=== PATIENT | female | born 1995 | race Caucasian/White ===

== ENCOUNTER 2018-06-09 14:35 | Emergency (ER) | payer MEDICAID ==
[2018-06-09] MEDS ORDERED: NS 1,000 ML IV ONE (14:53)
--- NOTE | 2018-06-09 14:57 | EDPHY ---
HPI/HX/ROS/PE/MDM Narrative: CHIEF COMPLAINT: Fall climbing, FTA HPI: This patient is a healthy 23-year-old female arriving via private vehicle, brought from the waiting room as a full trauma activation due to a reported 40ft fall when climbing this morning around 10:15am. She was climbing the [employer] this morning and states she slid and fell about 40ft. She states she landed on a ledge which prevented her from falling farther. She did strike her head but denies any loss of consciousness. She had a prolonged extrication by [employer] [facility] from the [facility]. After rescue, she declined ambulance transport. She presents to the emergency department by private vehicle primarily complaining of right leg pain, and she is concerned that her "ankle doesn't look awesome". The ankle has been splinted by [facility] personnel. She sustained a laceration to her right knee as well. She denies any other recent trauma or illness. She is well appearing, alert and oriented. REVIEW OF SYSTEMS: A comprehensive 10 system review of systems is otherwise negative aside from elements mentioned in the history of present illness and medical decision making. PMH: Denies SOCIAL HISTORY: Mother at bedside. Recent [employer] graduate. 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 PHYSICAL EXAM: General:Patient is alert, in no acute distress. Head: Normocephalic. Abrasion to left cheondoism, otherwise atraumatic. ENT:Eyes are normal to inspection. ENT inspection normal. No hemotympanum. Neck: Normal inspection. Full range of motion. Respiratory:No respiratory distress. Breath sounds normal bilaterally. Cardiovascular: Regular rate and rhythm. Strong peripheral pulses. Normal cap refill. Abdomen:The abdomen is nontender to palpation. There are no peritoneal signs. There are normal bowel sounds. Back: Abrasion to right buttock. Normal to inspection. No tenderness to palpation, no step-offs. Skin: Normal color. No rash. Warm and dry. Extremities: Obvious deformity/dislocation to right ankle, intact Abrasion to right lateral malleolus. 4cm linear laceration over right song proximal to the knee. Full range of motion. Neuro: Oriented x3. Normal motor function. Normal sensory function. ED Course: 14:46 Met patient on arrival. 23-year-old female presents with obvious deformity to the right ankle as well as various abrasions and a laceration after part sliding, part falling about 40 feet down the first flatiron while climbing this morning around 10:15am. Dr. Enriquez, general surgeon, at bedside. Patient is alert and oriented, arrived by private vehicle. She is well- appearing. Plan to administer 4mg IV morphine, 1L IV NS for symptom relief. 15:00 Dr. Burr and I agree to downgrade the trauma alert. Downgraded at this time. Reviewed x-rays. Evidence of mid-foot fracture. The patient seems to have sustained an isolated right ankle injury. No other injuries identified. Plan to consult with orthopedics. 15:[address] Ashley, medical specialist. He will review the patient' s x-ray. 15:[address] Ashley. Recommends reduction of patient's subtalar dislocation here in the emergency department followed by three-way splint. Patients mother now at bedside. 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 15:[address] Ashley. He recommends we proceed with reduction at this time. 16:05 Attempted reduction with 100mcg IV Fentanyl. Unable to reduce. 16:[address] Ashley. He requests CT of the right foot. When this is obtained he will come to evaluate for possible reduction with conscious sedation. Laceration Repair: Verbal consent was obtained from the patient. The linear 4cm laceration on the right song was anesthetized using bupivacaine with epinephrine. The wound was cleaned with standard ED protocol, draped and explored to its base with a gloved finger. The wound was repaired in single layer technique with four 4-0 Prolene sutures. The wound repair was simple. The procedure was performed by myself, Dr. Arevalo. Dr. Ashley has reviewed CT and assessed the patient. Plan for splint placement under standard ED protocol and followup outpatient with orthopedics. Reassessed patient. Discussed imaging results and the plan for orthopedic followup. Return precautions discussed. She and her mother are comfortable with this plan. - Data Points Imaging Results: Imaging Impressions Ankle X-Ray 06/09/18 14:52 Impression: 1. Intact ankle mortise. 2. Derangement mid foot with several fractures and disrupted joint spaces. Recommend CT of the foot and ankle to optimally characterize. Tibia/Fibula X-Ray 06/09/18 14:52 Impression: Intact shaft of tibia and fibula. Extremity CT 06/09/18 16:13 Impression: 1. Multiple comminuted displaced fractures of the right foot tarsal bones especially the cuboid and navicular bones, third toe proximal phalanx base, with smaller fracture fragments involving the talus, cuneiforms, and base of the fifth metacarpal as described above. 2. Recommend dedicated x-rays of the right foot or toes. Findings and recommendations discussed with Emergency Department physician, Ruddy Arevalo MD, at 1720 hour, 06/09/2018. Final report concurs with initial preliminary interpretation. Imaging: Discussed imaging studies w/ allergy physician Radiologist, I viewed and interpreted images myself Laboratory Results: Laboratory Results 06/09/18 15:17 06/09/18 15:17 06/09/18 06/09/18 06/09/18 15:17 15:17 15:17 WBC 10.34 10^3/uL H 10^3/uL (3.80-9.50) RBC 5.05 10^6/uL 10^6/uL (4.18-5.33) Hgb 15.0 g/dL g/dL (12.6-16.3) Hct 44.6 % % (38.0-47.0) MCV 88.3 fL fL (81.5-99.8) MCH 29.7 pg pg (27.9-34.1) MCHC 33.6 g/dL g/dL (32.4-36.7) RDW 12.8 % % (11.5-15.2) Plt Count 231 10^3/uL 10^3/uL (150-400) MPV 9.3 fL fL (8.7-11.7) Neut % (Auto) 83.4 % H % (39.3-74.2) Lymph % (Auto) 10.7 % L % (15.0-45.0) [place] % (Auto) 5.2 % % (4.5-13.0) Eos % (Auto) 0.0 % L % (0.6-7.6) Baso % (Auto) 0.2 % L % (0.3-1.7) Nucleat RBC Rel Count 0.0 % % (0.0-0.2) Absolute Neuts (auto) 8.62 10^3/uL H 10^3/uL (1.70-6.50) Absolute Lymphs (auto) 1.11 10^3/uL 10^3/uL (1.00-3.00) Absolute Monos (auto) 0.54 10^3/uL 10^3/uL (0.30-0.80) Absolute Eos (auto) 0.00 10^3/uL L 10^3/uL (0.03-0.40) Absolute Basos (auto) 0.02 10^3/uL 10^3/uL (0.02-0.10) Absolute Nucleated RBC 0.00 10^3/uL 10^3/uL (0-0.01) Immature Gran % 0.5 % % (0.0-1.1) Immature Gran # 0.05 10^3/uL 10^3/uL (0.00-0.10) Sodium 136 mEq/L mEq/L (135-145) Potassium 4.0 mEq/L mEq/L (3.5-5.2) Chloride 103 mEq/L mEq/L (97-110) Carbon Dioxide 22 mEq/l mEq/l (22-31) Anion Gap 11 mEq/L mEq/L (6-14) BUN 19 mg/dL mg/dL (7-23) Creatinine 0.6 mg/dL mg/dL (0.6-1.0) Estimated GFR > 60 Glucose 96 mg/dL mg/dL (70-100) Calcium 9.3 mg/dL mg/dL (8.5-10.4) Beta HCG, Qual NEGATIVE Medications Given: Discontinued Medications Diphtheria/Tetanus/Acell Pertussis (Boostrix) 0.5 ml IM .ONCE ONE Stop: 06/09/18 15:48 Last Admin: 06/09/18 16:14 Dose: Not Given Fentanyl (Sublimaze) 50 mcg IVP EDNOW ONE Stop: 06/09/18 15:37 Last Admin: 06/09/18 15:38 Dose: 50 mcg Fentanyl (Sublimaze) 50 mcg IVP EDNOW ONE Stop: 06/09/18 15:59 Last Admin: 06/09/18 15:58 Dose: 50 mcg Sodium Chloride (Ns) 1,000 mls @ 0 mls/hr IV EDNOW ONE; Wide Open PRN Reason: Protocol Stop: 06/09/18 14:54 Last Admin: 06/09/18 15:23 Dose: 1,000 mls Morphine Sulfate (Morphine) 4 mg IVP EDNOW ONE Stop: 06/09/18 14:54 Last Admin: 06/09/18 14:53 Dose: 4 mg General Time Seen by Provider: 06/09/18 14:44 Initial Vital Signs: Initial Vital Signs Temperature (C) 36.6 C 06/09/18 14:41 Heart Rate 84 06/09/18 14:41 Respiratory Rate 16 06/09/18 14:41 Blood Pressure 116/82 H 06/09/18 14:41 O2 Sat (%) 99 06/09/18 14:41 O2 Delivery Mode Room Air Allergies/Adverse Reactions: No Known Drug Allergies Allergy (Verified 06/09/18 15:06) Home Medications: Medication Instructions Recorded Ondansetron Odt [Zofran Odt] 4 mg PO Q4PRN PRN #10 tab 06/09/18 traMADol [Ultram 50 mg (*)] 50 mg PO Q4 PRN #30 tab 06/09/18 Departure - Departure Disposition: Home, Routine, Self-Care Clinical Impression: Cuboid fracture Qualifiers: Encounter type: initial encounter Fracture type: closed Fracture alignment: displaced Laterality: right Qualified Code(s): S92.211A - Displaced fracture of cuboid bone of right foot, initial encounter for closed fracture Laceration of leg Qualifiers: Encounter type: initial encounter Laterality: right Qualified Code(s): S81.811A - Laceration without foreign body, right lower leg, initial encounter Fracture of intermediate cuneiform bone of right foot Qualifiers: Encounter type: initial encounter Fracture type: closed Fracture alignment: displaced Qualified Code(s): S92.231A - Displaced fracture of intermediate cuneiform of right foot, initial encounter for closed fracture Navicular fracture of ankle Qualifiers: Encounter type: initial encounter Fracture type: closed Fracture alignment: displaced Laterality: right Qualified Code(s): S92.251A - Displaced fracture of navicular [scaphoid] of right foot, initial encounter for closed fracture Fracture of talus of right ankle, closed Qualifiers: Encounter type: initial encounter Talus location: body Fracture alignment: displaced Qualified Code(s): S92.121A - Displaced fracture of body of right talus, initial encounter for closed fracture Condition: Good Instructions: Care For Your Stitches (ED), Laceration (ED), Foot Fracture in Adults (ED) Additional Instructions: Rest, ice, elevation. Take Ultram as prescribed as needed for pain. Take Zofran as prescribed as needed for nausea. Follow up with Dr. Glasgow, orthopedic surgeon, within one week. Wear splint at all times until reevaluation. Sutures out in 10-14 days. Return to the Emergency Department for fever, redness, discharge from wound, increasing pain or other worsening of condition. Return to the emergency department for worsening pain, swelling, numbness, weakness or other concerns. Referrals: Dai Hudson MD [Primary Care Provider] - As per Instructions Maykel Glasgow MD [Medical Doctor] - As per Instructions Prescriptions: Ondansetron Odt [Zofran Odt] 4 mg PO Q4PRN PRN #10 tab PRN Reason: Nausea traMADol [Ultram 50 mg (*)] 50 mg PO Q4 PRN #30 tab PRN Reason: Pain, Severe Report Scribed for: Ruddy Arevalo Report Scribed by: Marion Hernandez Date of Report: 06/09/18 Time of Report: 14:54 Physician Review and Approval Statement: Portions of this note were transcribed by an ED scribe. I personally performed the history, physical exam, and medical decision making; and confirm the accuracy of the information in the transcribed note.
[2018-06-09 15:28] LABS: PLATELET COUNT 231 10^3/uL (150-400)
[2018-06-09] MEDS ORDERED: fentaNYL 100 MCG/2 ML INJ ONE (15:35)
[2018-06-09] MEDS ORDERED: fentaNYL 100 MCG/2 ML INJ IVP ONE ×2 (15:36→15:58)
[2018-06-09] MEDS ORDERED: TDAP ADULT 0.5 ML INJ (BOOSTRIX) IM ONE (15:47)
[2018-06-09 16:08] VITALS: BP 121/79
--- NOTE | 2018-06-09 17:05 | GCON ---
[f rep st] CONSULTATION DATE OF CONSULTATION: 06/09/2018 CHIEF COMPLAINT: Fall. HISTORY OF PRESENT ILLNESS: This is a 23-year-old female who arrives at the emergency department via private vehicle after sustaining a fall at the [employer]. Briefly, the patient was trying a s olo attempt, fell about 40 feet, some of which was free fall. She states that she struck her head, d id not lose consciousness and landed ultimately on her right ankle. Given the significant pain and d eformity of the right ankle, she was able to self extricate. Rescue team was subsequently called. S he was taken to the base of the mobile and declined EMS transport and was subsequently brought here via private vehicle. Given the mechanism, she was immediately made a full trauma activation. I met the patient in the emergency department. She was alert, oriented, protecting her airway, breathing appropriately with appropriate circulation in all major distributions, complaining of right ankle deep n. PAST MEDICAL HISTORY: None. PAST SURGICAL HISTORY: None. MEDICATIONS: None current. She does have an IUD in place. ALLERGIES: None. SOCIAL HISTORY: Denies any illicit drug use. Recent graduate from [employer]. 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 PHYSICAL EXAMINATION: VITAL SIGNS: Temperature 36.6, blood pressure 116/82, heart rate 84, she is 9 9% on room air. CONSTITUTIONAL: She is in mild distress and appears uncomfortable. HEENT: Eyes: Her pupils are equal, round, and reactive to light and accommodation. Her extraocular movements are intact. She has anicteric sclerae. She has a very mild abrasion to her left episcopal. Ears, nose, mo uth, throat: She has moist mucous membranes. Her hearing is normal. She has normal dentition. CAR DIOVASCULAR: She has a regular rate and rhythm without any murmurs, rubs, or gallops. RESPIRATORY: She has no respiratory distress, rales or rhonchi. She is, otherwise, clear to auscultation bilater ally. GI: Her abdomen is soft, nondistended, nontender. She has normoactive bowel sounds. SKIN: She has an abrasion on her left buttock, left episcopal and an open laceration on her proximal right tib ia. MUSCULOSKELETAL: She has a clear deformity of her right ankle. Otherwise has full muscle stren gth without tenderness or weakness. NEUROLOGIC: She is alert and oriented x3. Her cranial nerves 2 -12 are intact. She has no weakness, no numbness. PSYCHIATRIC: She is interacting appropriately. She is not anxious or encephalopathic. LYMPH/HEME/IMMUNOLOGIC: She has no cervical, groin, or supra clavicular lymphadenopathy identified. LABORATORY DATA: Leukocytosis to 10.3 with a left shift. H and H stable at 15 and 45. Chemistry is unremarkable. Beta HCG is negative. IMAGING: Ankle and tib-fib x-ray, the images of which were personally reviewed, which show intact an kle mortise. However, there is a derangement of the midfoot with several fractures including the cub oid base of the 5th metatarsal, likely 3rd metatarsal and navicular bone. The remainder of the tib-f ib is within normal limits. ASSESSMENT AND PLAN: 23-year-old female status post fall while climbing with what appears to be an i solated right ankle injury. Given the patient's stability and overall appropriateness, the decision was made to immediately downgrade this from a full trauma activation. I see no other injury patterns on the patient. She will be evaluated in the emergency department. Orthopedics will be consulted f or her foot injury. Trauma services will be available if required. /[id number]/MODL
--- NOTE | 2018-06-09 19:45 | ASMTCAGE ---
CAGE Additional Comments CAGE completed per trauma protocol. Pt is an avid athlete, questions not applicable. No indications of substance/alcohol abuse. Date Signed: 06/09/2018 07:44 PM Electronically Signed By:Opal Hurst RN
--- NOTE | 2018-06-09 19:50 | ASMTCMCOM ---
CM Note CM Note Notes: Late Entry: Reviewed chart. Pt presented to the Emergency Department via private vehicle as a trauma activation, s/p a 40 ft slide/fall, while rock climbing. History is unremarkable. Pt is a recent [employer] graduate. She is accompanied by her mother. CAGE completed per trauma protocol. Naomi Dominguez with [facility] met with pt; no needs identified. Pt to discharge home independently with family support. Pt to follow up with orthopedics as directed. CM available for any further issues or concerns. Date Signed: 06/09/2018 07:50 PM Electronically Signed By:Opal Hurst RN
--- NOTE | 2018-06-10 04:16 | GCON ---
[f rep st] CONSULTATION EMERGENCY DEPARTMENT CONSULTATION CHIEF COMPLAINT: She presents for right ankle pain and deformity. HISTORY OF PRESENT ILLNESS: The patient is a 23-year-old recent [employer] graduate who was brought to the e mergency department after falling 40 feet while climbing the [place] this morning. She state s she slid and fell approximately 40 feet. She did not strike her head, had no loss of consciousness . She was extricated by [facility] and she presented by private car complaining of ankle pain and deformity. She has a history of congenital clubbed foot and numerous surgical corrections a s a child. She always has a slight curvature to her ankle by her subjective report. She is unable t o bear weight. PAST MEDICAL HISTORY: Denies. PAST SURGICAL HISTORY: As above. MEDICATIONS: See chart. ALLERGIES: None. SOCIAL HISTORY: Recent [employer] graduate. Her mother is at her bedside. OBJECTIVE: GENERAL: This is a healthy young woman, pleasant and cooperative with examination. EXTREMITIES: Examination of the right lower extremity reveals an inverted position. She has well-he aled surgical incisions. She has large swelling and ecchymosis over the lateral aspect of her ankle. Intact digital flexion and extension without increased discomfort or complaint. Limited ankle plan tar flexion, dorsiflexion secondary to pain. Sensation is grossly intact to light touch across the s uperficial and deep peroneal, saphenous, sural, posterior tibial nerve distribution. Digital tips ar e warm with 2 to 3 second capillary refill. RADIOGRAPHS: X-ray of her tib/fib, ankle x-ray and extremity CT demonstrate medial displacement of h er mid foot. There are numerous small comminuted fragments of her navicular base of the 5th metatars al and navicular bones, 3rd toe proximal phalanx, the talus and the cuneiforms. 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 The ankle and subtalar joint are reduced. I have recommended splint application with a bulky padded splint, strict ice and elevation, strict no nweightbearing. I have spoken with Maykel Landin at [facility]. Her mother had seen Dr. Ann sanchez previously. I recommend followup with him for repeat evaluation and possible surgical stabilizatio n. I have outlined this with her at length. I have given her my contact information if she has inte rvening focal issues or pain control issues, then she may speak with me. Otherwise, follow up with Boni Landin as above. /[id number]/MODL
== END 2018-06-09 18:17 | disposition home or self-care (01) ==
DX: S92.211A Displaced fracture of cuboid bone of right foot, initial encounter for closed fracture (principal); S92.511A Displaced fracture of proximal phalanx of right lesser toe(s), initial encounter for closed fracture; S92.121A Displaced fracture of body of right talus, initial encounter for closed fracture; S92.231A Displaced fracture of intermediate cuneiform of right foot, initial encounter for closed fracture; S92.251A Displaced fracture of navicular [scaphoid] of right foot, initial encounter for closed fracture; S62.316A Displaced fracture of base of fifth metacarpal bone, right hand, initial encounter for closed fracture; S81.811A Laceration without foreign body, right lower leg, initial encounter; S30.810A Abrasion of lower back and pelvis, initial encounter; S90.511A Abrasion, right ankle, initial encounter; W17.89XA Other fall from one level to another, initial encounter; Y93.31 Activity, mountain climbing, rock climbing and wall climbing; Y92.828 Other wilderness area as the place of occurrence of the external cause
CPT/HCPCS: 96374; J2270; J3010